=== PATIENT | female | born 1940 | race Caucasian/White ===

== ENCOUNTER 2018-10-09 09:56 | Observation (INO) | payer MEDICARE, OTHER ==
[~2018-10-09] VITALS: Ht 170.2 cm; Wt 98.2 kg
[~2018-10-09 09:56] MED LIST: ATOR20TA66 PO; BENA20TA2 PO; DIAZ10TA PO; ESCI20TA PO; HYDR-4383 PO; OMEP40CA13 PO; SOTA80TA PO; WARF2.5T PO; WARF5TAB PO; WHEE1EAC12 MC
[2018-10-09] MEDS ORDERED: morphine 4 MG/ML inj SYRINge IV ONE ×3 (10:25→12:20)
[2018-10-09] MEDS ORDERED: ondansetron/PF 4mg/2ml inj IV ONE (10:30)
[2018-10-09 10:49] LABS: BASOPHILS # (AUTO) 0.1 X10'3 (0-0.2); EOSINOPHILS # (AUTO) 0.2 X10'3 (0-0.9); EOSINOPHILS % (AUTO) 2.4 % (0-6); HEMATOCRIT 42.9 % (35.0-45.0); HEMOGLOBIN 14.4 g/dl (12.0-16.0); LYMPHOCYTES # (AUTO) 1.8 X10'3 (1.1-4.8); LYMPHOCYTES % (AUTO) 27.7 % (21-51); MEAN CORPUSCULAR HEMOGLOBIN 30.5 PG (27.0-31.0); MEAN CORPUSCULAR HGB CONC 33.5 g/dL (33.0-36.5); MEAN PLATELET VOLUME 7.2 FL (7.4-10.4); MONOCYTES # (AUTO) 0.5 X10'3 (0-0.9); MONOCYTES % (AUTO) 7.7 % (2-12); NEUTROPHILS % (AUTO) 61.2 % (42-75); PLATELET COUNT 286 X10'3 (140-440); RED BLOOD COUNT 4.71 X10'6 (4.20-5.60); RED CELL DISTRIBUTION WIDTH 13.2 % (11.5-14.5); WHITE BLOOD COUNT 6.5 X10'3 (4.5-11.0)
[2018-10-09 11:02] LABS: ALANINE AMINOTRANSFERASE 22 U/L (12-78); ALBUMIN 3.4 G/DL (3.4-5.0); ALBUMIN/GLOBULIN RATIO 0.8 (1.1-1.5); ALKALINE PHOSPHATASE 88 IU/L (46-116); ANION GAP 9 (8-16); ASPARTATE AMINO TRANSFERASE 16 U/L (10-37); BILIRUBIN,TOTAL 0.8 MG/DL (0.1-1.0); BLOOD UREA NITROGEN 12 MG/DL (7-18); BUN/CREATININE RATIO 13.8 (6.6-38.0); CALCIUM 9.9 MG/DL (8.5-10.1); CHLORIDE 102 MMOL/L (99-107); CREATININE 0.87 MG/DL (0.40-0.90); GLUCOSE 113 MG/DL (70-104); POTASSIUM 4.4 MMOL/L (3.5-5.1); SODIUM 138 MMOL/L (135-145); TOTAL CARBON DIOXIDE 27.1 MMOL/L (24-32); TOTAL PROTEIN 7.8 G/DL (6.4-8.2); eGFR 63 ML/MIN
[2018-10-09 11:39] LABS: COLOR,URINE YELLOW (Yellow); GLUCOSE, URINE NEGATIVE (Neg); KETONES,URINE NEGATIVE (Neg); LEUKOCYTE ESTERASE ,URINE NEGATIVE (Neg); NITRITES, URINE NEGATIVE (Neg); OCCULT BLOOD,URINE LARGE (Neg); PH,URINE 8.5 (4.8-8.0); PROTEIN,URINE TRACE mg/dl (Neg); UROBILINOGEN,URINE 0.2 E.U/dL (0.2-1.0)
[2018-10-09 11:46] LABS: CLARITY,URINE SLIGHTLY CLOUDY (Clear); UA COLLECTION TYPE STRAIGHT CATH
[2018-10-09 11:48] LABS: RBC,URINE 20-50 /HPF (0-2); WBC,URINE 0-4 /HPF (0-4)
[2018-10-09 11:49] LABS: BACTERIA,URINE FEW /HPF (Neg); MUCUS STRANDS FEW /LPF (Neg); RENAL CELLS, URINE FEW /HPF; SQUAMOUS EPITHELIAL CELL,UR MODERATE /LPF (FEW); TRANSITIONAL EPI CELLS,URINE FEW /HPF
[2018-10-09 11:50] LABS: HYALINE CASTS 0-3 /LPF (NEGATIVE)
[2018-10-09] MEDS ORDERED: ringers solution, lacted 1,000 ML IV ONE (12:30)
[2018-10-09] MEDS ORDERED: normal saline 1000ml 1,000 ML IV ONE (12:50)
[2018-10-09] MEDS ORDERED: WARF3TAB56 PO (13:20)
[2018-10-09] MEDS ORDERED: HYDR-3973 PO (13:20)
[2018-10-09] MEDS ORDERED: CYCL-145 PO (13:20)
[2018-10-09] MEDS ORDERED: GABA-532 PO (13:20)
[2018-10-09] MEDS ORDERED: MULT1TAB74 PO (13:22)
[2018-10-09] MEDS ORDERED: CHOL50004 PO (13:22)
[2018-10-09] MEDS ORDERED: ondansetron/PF 4mg/2ml inj IV PRN (14:10)
[2018-10-09] MEDS ORDERED: potassium Cl 20 mEq SR tablet PO PRN ×2 (14:10)
[2018-10-09] MEDS ORDERED: magnesium 4gm in 100ml NS 100 ML IV PRN (14:10)
[2018-10-09] MEDS: K and/or MAG REPLACEMENT MC SCH (14:10)
[2018-10-09] MEDS ORDERED: morphine 2 MG/ML inj. syringe IV PRN ×2 (14:10)
[2018-10-09] MEDS ORDERED: magnesium 2GM in 50ml NS 50 ML IV PRN (14:10)
[2018-10-09] MEDS ORDERED: acetaminophen 325mg tablet PO PRN ×2 (14:10)
[2018-10-09] MEDS ORDERED: mag hydrox/Alum hydrox/simeth 30ml oral suspension PO PRN (14:10)
[2018-10-09] MEDS ORDERED: potassium CL 10mEq/100ml bag 100 ML IV PRN ×2 (14:10)
[2018-10-09] MEDS ORDERED: acetaminophen 650mg rectal suppository RC PRN (14:10)
[2018-10-09] MEDS ORDERED: bisacodyl 10mg suppository rectal RC PRN (14:10)
[2018-10-09] MEDS ORDERED: magnesium hydroxide 30ml (MOM) UD suspension PO PRN (14:10)
[2018-10-09] MEDS ORDERED: magnesium Cl slow-release 64mg tablet PO PRN (14:10)
[2018-10-09] MEDS ORDERED: HYDROcodone/acetaminophen 5mg/325mg tablet PO PRN (14:10)
[2018-10-09] MEDS ORDERED: diphenhydrAMINE 25mg capsule PO PRN (14:10)
[2018-10-09] MEDS ORDERED: diphenhydrAMINE 50 mg/ml inj IV PRN (14:10)
[2018-10-09] MEDS: normal saline 1000ml 1,000 ML IV SCH ×2 (14:26→20:49)
[2018-10-09 15:00] LABS: HEMOGLOBIN A1C 6.2 % (4.5-6.2)
--- NOTE | 2018-10-09 16:04 | NUR ---
report received from Sherry MUNGUIA in ER
--- NOTE | 2018-10-09 16:30 | NUR ---
Patient came to floor into room 4022B, patient stable upon arrival
[2018-10-09] MEDS: HYDROcodone/acetaminophen 10/325mg tab PO PRN (17:36)
[2018-10-09 18:00] VITALS: BP 110/44
--- NOTE | 2018-10-09 18:20 | NUR ---
Problems reprioritized. Patient report given, questions answered & plan of care reviewed with Chary MUNGUIA.
--- NOTE | 2018-10-09 18:23 | NUR ---
report rec'd from cady Smith.
[2018-10-09] MEDS ORDERED: heparin, porcine 5000 units/ml vial SQ SCH (20:00)
[2018-10-09] MEDS: docusate sod 100mg capsule PO SCH (20:49)
[2018-10-09] MEDS: atorvastatin 20mg tablet PO SCH (20:49)
[2018-10-09] MEDS: gabapentin 300mg capsule PO SCH (20:51)
[2018-10-09] MEDS: citalopram 20mg tablet PO SCH (20:56)
[2018-10-09] MEDS ORDERED: temazepam 15mg capsule PO PRN (21:00)
[2018-10-09] MEDS ORDERED: warfarin 3mg tablet PO SCH (21:00)
[2018-10-09] MEDS: cyclobenzaprine 10mg tablet PO PRN (21:00)
[2018-10-09 22:00] VITALS: BP 138/52
[2018-10-10] MEDS: sotalol 80mg tablet PO SCH ×3 (00:17→20:52)
[2018-10-10 00:18] VITALS: BP 136/57
[2018-10-10] MEDS: HYDROcodone/acetaminophen 10/325mg tab PO PRN ×3 (04:15→14:53)
[2018-10-10 06:00] VITALS: BP 121/68
[2018-10-10 06:12] LABS: BASOPHILS % (AUTO) 0.3 % (0-1); EOSINOPHILS # (AUTO) 0.2 X10'3 (0-0.9); EOSINOPHILS % (AUTO) 2.3 % (0-6); HEMATOCRIT 37.1 % (35.0-45.0); HEMOGLOBIN 12.3 g/dl (12.0-16.0); LYMPHOCYTES # (AUTO) 1.4 X10'3 (1.1-4.8); LYMPHOCYTES % (AUTO) 18.6 % (21-51); MEAN CORPUSCULAR HEMOGLOBIN 30.3 PG (27.0-31.0); MEAN CORPUSCULAR HGB CONC 33.2 g/dL (33.0-36.5); MEAN CORPUSCULAR VOLUME 91.3 FL (78-98); MEAN PLATELET VOLUME 7.1 FL (7.4-10.4); MONOCYTES # (AUTO) 0.6 X10'3 (0-0.9); MONOCYTES % (AUTO) 7.4 % (2-12); NEUTROPHILS # (AUTO) 5.4 X10'3 (1.8-7.7); NEUTROPHILS % (AUTO) 71.4 % (42-75); PLATELET COUNT 252 X10'3 (140-440); RED BLOOD COUNT 4.06 X10'6 (4.20-5.60); RED CELL DISTRIBUTION WIDTH 13.3 % (11.5-14.5); WHITE BLOOD COUNT 7.5 X10'3 (4.5-11.0)
--- NOTE | 2018-10-10 06:19 | NUR ---
REPORT GIVEN TO EZRA EDWARDS.
[2018-10-10 06:42] LABS: ALANINE AMINOTRANSFERASE 18 U/L (12-78); ALBUMIN 2.9 G/DL (3.4-5.0); ALBUMIN/GLOBULIN RATIO 0.8 (1.1-1.5); ALKALINE PHOSPHATASE 75 IU/L (46-116); ANION GAP 4 (8-16); ASPARTATE AMINO TRANSFERASE 13 U/L (10-37); BILIRUBIN,TOTAL 0.4 MG/DL (0.1-1.0); BLOOD UREA NITROGEN 12 MG/DL (7-18); BUN/CREATININE RATIO 14.3 (6.6-38.0); CALCIUM 8.6 MG/DL (8.5-10.1); CHLORIDE 104 MMOL/L (99-107); CHOL/HDL RATIO 2.5 (0.00-4.99); CHOLESTEROL 120 MG/DL (0-200); CREATININE 0.84 MG/DL (0.40-0.90); GLUCOSE 112 MG/DL (70-104); HDL CHOLESTEROL 48 MG/DL (35-60); LDL CHOLESTEROL 60 MG/DL (50-100); MAGNESIUM 1.7 MG/DL (1.5-2.4); POTASSIUM 4.3 MMOL/L (3.5-5.1); SODIUM 138 MMOL/L (135-145); TOTAL PROTEIN 6.7 G/DL (6.4-8.2); TRIGLYCERIDES 89 MG/DL (20-135); eGFR 65 ML/MIN
[2018-10-10] MEDS: K and/or MAG REPLACEMENT MC SCH (08:12)
[2018-10-10] MEDS: pantoprazole 40mg Tablet.DR PO SCH (08:33)
[2018-10-10] MEDS: multivitamins, therapeutics tablet PO SCH (08:33)
[2018-10-10] MEDS: gabapentin 300mg capsule PO SCH ×3 (08:33→20:52)
[2018-10-10] MEDS: docusate sod 100mg capsule PO SCH ×2 (08:34→20:52)
[2018-10-10] MEDS: vitamin D (cholecalciferol) 1,000 unit tablet PO SCH (08:34)
[2018-10-10] MEDS: cyclobenzaprine 10mg tablet PO PRN ×2 (08:41→22:56)
[2018-10-10 10:00] VITALS: BP 109/67
[2018-10-10] MEDS: normal saline 1000ml 1,000 ML IV SCH ×4 (10:42→20:52)
--- NOTE | 2018-10-10 11:35 | NUR ---
Spoke with Dr Zarate and received orders to discontinue tele monitoring. PCU home health provider
[2018-10-10 18:00] VITALS: BP 140/65
--- NOTE | 2018-10-10 18:07 | NUR ---
Problems reprioritized. Patient report given, questions answered & plan of care reviewed with Chary MUNGUIA.
--- NOTE | 2018-10-10 18:34 | NUR ---
REPORT REC'D FROM EZRA EDWARDS.
[2018-10-10] MEDS: atorvastatin 20mg tablet PO SCH (20:52)
[2018-10-10] MEDS: citalopram 20mg tablet PO SCH (20:52)
[2018-10-10] MEDS ORDERED: warfarin 5mg tablet PO ONE (21:00)
[2018-10-11 02:00] VITALS: BP 115/59
[2018-10-11] MEDS: HYDROcodone/acetaminophen 10/325mg tab PO PRN ×2 (05:33→14:03)
[2018-10-11 06:00] VITALS: BP 119/70
[2018-10-11 06:07] LABS: ALANINE AMINOTRANSFERASE 17 U/L (12-78); ALBUMIN 2.7 G/DL (3.4-5.0); ALBUMIN/GLOBULIN RATIO 0.7 (1.1-1.5); ALKALINE PHOSPHATASE 88 IU/L (46-116); ANION GAP 4 (8-16); ASPARTATE AMINO TRANSFERASE 11 U/L (10-37); BILIRUBIN,TOTAL 0.4 MG/DL (0.1-1.0); BLOOD UREA NITROGEN 11 MG/DL (7-18); BUN/CREATININE RATIO 17.2 (6.6-38.0); CALCIUM 8.6 MG/DL (8.5-10.1); CHLORIDE 104 MMOL/L (99-107); CREATININE 0.64 MG/DL (0.40-0.90); GLUCOSE 117 MG/DL (70-104); MAGNESIUM 1.8 MG/DL (1.5-2.4); POTASSIUM 4.1 MMOL/L (3.5-5.1); SODIUM 139 MMOL/L (135-145); TOTAL CARBON DIOXIDE 30.9 MMOL/L (24-32); TOTAL PROTEIN 6.6 G/DL (6.4-8.2); eGFR 89 ML/MIN
[2018-10-11 06:09] LABS: BASOPHILS % (AUTO) 0.6 % (0-1); EOSINOPHILS # (AUTO) 0.3 X10'3 (0-0.9); EOSINOPHILS % (AUTO) 3.7 % (0-6); HEMATOCRIT 37.5 % (35.0-45.0); HEMOGLOBIN 12.5 g/dl (12.0-16.0); LYMPHOCYTES % (AUTO) 27.9 % (21-51); MEAN CORPUSCULAR HEMOGLOBIN 30.6 PG (27.0-31.0); MEAN CORPUSCULAR HGB CONC 33.3 g/dL (33.0-36.5); MEAN CORPUSCULAR VOLUME 91.9 FL (78-98); MEAN PLATELET VOLUME 7.2 FL (7.4-10.4); MONOCYTES # (AUTO) 0.7 X10'3 (0-0.9); MONOCYTES % (AUTO) 9.5 % (2-12); NEUTROPHILS # (AUTO) 4.1 X10'3 (1.8-7.7); NEUTROPHILS % (AUTO) 58.3 % (42-75); PLATELET COUNT 225 X10'3 (140-440); RED BLOOD COUNT 4.09 X10'6 (4.20-5.60); RED CELL DISTRIBUTION WIDTH 12.9 % (11.5-14.5)
--- NOTE | 2018-10-11 06:32 | NUR ---
REPORT GIVEN TO EZRA EDWARDS.
[2018-10-11] MEDS: pantoprazole 40mg Tablet.DR PO SCH (08:14)
[2018-10-11] MEDS: multivitamins, therapeutics tablet PO SCH (08:14)
[2018-10-11] MEDS: gabapentin 300mg capsule PO SCH ×2 (08:14→14:04)
[2018-10-11] MEDS: vitamin D (cholecalciferol) 1,000 unit tablet PO SCH (08:14)
[2018-10-11] MEDS: docusate sod 100mg capsule PO SCH (08:15)
[2018-10-11] MEDS: sotalol 80mg tablet PO SCH (08:15)
[2018-10-11] MEDS: K and/or MAG REPLACEMENT MC SCH (08:17)
[2018-10-11 10:00] VITALS: BP 117/63
--- NOTE | 2018-10-11 14:07 | NUR ---
iv taken out, canula intact patient tolerated well.
[2018-10-11] MEDS ORDERED: warfarin 4mg tablet PO ONE (21:00)
== END 2018-10-11 14:15 | disposition home health service (06) ==
LOC: ER 09:56 → ORTHO 4S 16:05 → CMPBEDREQ 21:00
PROVIDERS: ADMIT Family Medicine; ATTEND Family Medicine
DX: M48.061 Spinal stenosis, lumbar region without neurogenic claudication (principal); G89.29 Other chronic pain; I48.91 Unspecified atrial fibrillation; I10 Essential (primary) hypertension; E78.5 Hyperlipidemia, unspecified; J45.909 Unspecified asthma, uncomplicated; Z87.891 Personal history of nicotine dependence; K21.9 Gastro-esophageal reflux disease without esophagitis; Z88.1 Allergy status to other antibiotic agents
CPT/HCPCS: 36415; 72133; 80053; 80061; 81001; 83036; 83735; 85025; 85610; 87081; 93005; 96374; 96375; 96376; 97110; 97116; 97161; 97530; 99284; G0378; J2270; J2405; J7030; J7120